=== PATIENT | male | born 1950 | race Caucasian/White ===

== ENCOUNTER → 2016-04-04 | Outpatient (CLI) | payer OTHER ==
[~2016-04-04] MED LIST: ATIVAN0.5 MG PO; ATIVAN1 MG PO; BENICAR5 MG PO; COZAAR25 M1 PO; COZAAR25 MG PO; Coumadin2.5 MG PO; ENDOCET 325 MG-1 TA2 PO; HYDROCODONE BIT1 T11 PO; INDOCIN SR75 MG PO; LOPRESSOR25 MG PO; MEDROL DOSEPAK4 MG PO; MIRALAX POWDER17 G1 PO; PEPCID20 MG PO; PERCOCET 325 MG1 TA3 PO; PERCOCET 325 MG1 TA7 PO; PREDNISONE10 MG PO; SEPTRA DS 800 M1 TAB PO; TOPROL XL25 MG PO; ULTRAM50 MG PO; VICODIN 5/500 505 MG PO; VICODIN 500 MG-1 TAB PO; ZITHROMAX250 MG PO
[2016-04-04 13:22] LABS: BUN 24 mg/dl (7-24); EST GLOM FILT AFRICAN AMERICAN > 60 ml/min
== END | disposition home or self-care (01) ==
LOC: LAB 12:52 → CT 13:00
PROVIDERS: Family Medicine
DX: R10.9 Unspecified abdominal pain (principal); R10.2 Pelvic and perineal pain

== ENCOUNTER → 2016-09-02 | Outpatient (CLI) | payer OTHER ==
[~2016-09-02] MED LIST changes: +ABILIFY2 MG PO; +CLONAZEPAM1 MG PO
[2016-09-02 12:38] LABS: BASO # 0.1 10*3/uL (0.0-0.1); BASO % 0.6 % (0.0-1.0); EOS # 0.2 10*3/uL (0.0-0.4); EOS % 2.4 % (1.0-4.0); HEMATOCRIT 42.3 % (42.0-52.0); HEMOGLOBIN 13.9 g/dl (14.0-18.0); LYMPH # 1.8 10*3/uL (1.3-4.4); LYMPH % 22.5 % (27.0-41.0); MEAN CELL VOLUME 95.5 fl (80.0-94.0); MEAN CORPUSCULAR HGB 31.4 pg (27.0-31.0); MEAN CORPUSCULAR HGB CONC 32.9 g/dl (33.0-37.0); MEAN PLATELET VOLUME 11.2 fl (9.6-12.3); MONO # 0.5 10*3/uL (0.1-1.0); MONO % 6.4 % (3.0-9.0); NEUT # 5.3 10*3/uL (2.3-7.9); PLATELET COUNT AUTOMATED 136 10*3/uL (130-400); RED BLOOD COUNT 4.43 10*6/uL (4.50-5.90); RED CELL DISTRI WIDTH 14.6 % (0-14.5); WHITE BLOOD COUNT 7.8 10*3/uL (4.8-10.8)
[2016-09-02 12:42] LABS: BILIRUBIN NEGATIVE (NEGATIVE); BLOOD TRACE-INTACT (NEGATIVE); CLARITY SL CLOUDY (CLEAR); COLOR YELLOW (YELLOW); GLUCOSE NEGATIVE (NEGATIVE); KETONE NEGATIVE (NEGATIVE); LEUKO ESTERASE NEGATIVE (NEGATIVE); NITRITE NEGATIVE (NEGATIVE); PROTEIN NEGATIVE (NEGATIVE); UROBILINOGEN 0.2 E.U./dl (0.2-1.0)
[2016-09-02 12:56] LABS: MUCOUS TRACE
[2016-09-02 13:04] LABS: BUN 22 mg/dl (7-24); CARBON DIOXIDE 32 mmol/L (21-32); CHLORIDE 109 mmol/L (98-107); EST GLOM FILT AFRICAN AMERICAN > 60 ml/min; GLUCOSE 83 mg/dL (65-99); POTASSIUM 4.9 mmol/L (3.5-5.1); SODIUM 148 mmol/L (136-145)
[2016-09-02 13:07] LABS: INTERNATIONAL NORM RATIO 2.4 (2.0-3.5); PROTHROMBIN TIME 27.3 SECONDS (9.0-12.4)
== END | disposition home or self-care (01) ==
LOC: LAB 10:55
PROVIDERS: Surgery
DX: K40.90 Unilateral inguinal hernia, without obstruction or gangrene, not specified as recurrent (principal); Z79.01 Long term (current) use of anticoagulants

== ENCOUNTER → 2016-09-08 | Day surgery (SDC) | payer OTHER ==
[2016-09-08] VITALS (7 sets, daily range): BP systolic 148–174; BP diastolic 99–108
[~2016-09-08] VITALS: Ht 182.8 cm; Wt 75.7 kg
[~2016-09-08] MED LIST changes: +NORCO 5-325 TA1 EACH PO
[2016-09-08 09:22] LABS: INTERNATIONAL NORM RATIO 1.1 (2.0-3.5); PROTHROMBIN TIME 11.6 SECONDS (9.0-12.4)
== END | disposition home or self-care (01) ==
LOC: SDC 09-02 11:00
PROVIDERS: Surgery
DX: K40.90 Unilateral inguinal hernia, without obstruction or gangrene, not specified as recurrent (principal); I48.91 Unspecified atrial fibrillation; I10 Essential (primary) hypertension; K21.9 Gastro-esophageal reflux disease without esophagitis; F41.9 Anxiety disorder, unspecified; M19.90 Unspecified osteoarthritis, unspecified site; F17.210 Nicotine dependence, cigarettes, uncomplicated; Z96.642 Presence of left artificial hip joint; Z79.01 Long term (current) use of anticoagulants; Z98.890 Other specified postprocedural states; Z82.49 Family history of ischemic heart disease and other diseases of the circulatory system; Z79.899 Other long term (current) drug therapy; Z85.828 Personal history of other malignant neoplasm of skin

== ENCOUNTER 2017-01-18 17:44 | Inpatient (IN) | payer OTHER ==
[~2017-01-18] VITALS: Ht 182.9 cm; Wt 75.4 kg
[2017-01-18 17:44] VITALS: BP 140/98
[2017-01-18 18:17] LABS: BASO % 0.4 % (0.0-1.0); EOS % 0.1 % (1.0-4.0); HEMATOCRIT 49.3 % (42.0-52.0); HEMOGLOBIN 16.6 g/dl (14.0-18.0); LYMPH # 1.1 10*3/uL (1.3-4.4); LYMPH % 14.6 % (27.0-41.0); MEAN CELL VOLUME 93.5 fl (80.0-94.0); MEAN CORPUSCULAR HGB 31.5 pg (27.0-31.0); MEAN CORPUSCULAR HGB CONC 33.7 g/dl (33.0-37.0); MEAN PLATELET VOLUME 10.6 fl (9.6-12.3); MONO # 0.5 10*3/uL (0.1-1.0); MONO % 6.6 % (3.0-9.0); NEUT # 5.9 10*3/uL (2.3-7.9); PLATELET COUNT AUTOMATED 167 10*3/uL (130-400); RED BLOOD COUNT 5.27 10*6/uL (4.50-5.90); RED CELL DISTRI WIDTH 14.1 % (0-14.5); WHITE BLOOD COUNT 7.6 10*3/uL (4.8-10.8)
[2017-01-18 18:33] LABS: ACT PARTIAL THROMBO TIME 40.6 SECONDS (20.8-31.5)
[2017-01-18 18:35] LABS: ALBUMIN 4.1 gm/dl (3.1-4.5); ALKALINE PHOSPHATASE 70 U/L (45-117); BUN 22 mg/dl (7-24); CHLORIDE 102 mmol/L (98-107); CREATININE 1.18 mg/dL (0.70-1.30); POTASSIUM 3.8 mmol/L (3.5-5.1); SGOT/AST 24 IU/L (3-35); SGPT/ALT 19 U/L (12-78); SODIUM 141 mmol/L (136-145); TOTAL PROTEIN 7.4 gm/dL (6.4-8.2); TROPONIN I 0.024 ng/ml (<0.045)
[2017-01-18 18:37] LABS: INTERNATIONAL NORM RATIO 6.9 (2.0-3.5)
[2017-01-18 21:07] LABS: BILIRUBIN 1+ (NEGATIVE); BLOOD 1+ (NEGATIVE); CLARITY CLEAR (CLEAR); COLOR YELLOW (YELLOW); GLUCOSE NEGATIVE (NEGATIVE); KETONE 3+ (NEGATIVE); LEUKO ESTERASE NEGATIVE (NEGATIVE); NITRITE NEGATIVE (NEGATIVE); UROBILINOGEN 0.2 E.U./dl (0.2-1.0)
[2017-01-18 21:20] LABS: BACTERIA TRACE; MUCOUS TRACE
[2017-01-18 21:21] LABS: EPITHELIAL CELLS 0-2
[2017-01-18 22:00] VITALS: BP 150/90
[2017-01-19] VITALS: BP 143/93
[2017-01-19 06:36] LABS: BASO % 0.6 % (0.0-1.0); EOS # 0.1 10*3/uL (0.0-0.4); EOS % 0.8 % (1.0-4.0); HEMATOCRIT 43.7 % (42.0-52.0); HEMOGLOBIN 14.7 g/dl (14.0-18.0); LYMPH # 1.9 10*3/uL (1.3-4.4); LYMPH % 27.2 % (27.0-41.0); MEAN CELL VOLUME 93.4 fl (80.0-94.0); MEAN CORPUSCULAR HGB 31.4 pg (27.0-31.0); MEAN CORPUSCULAR HGB CONC 33.6 g/dl (33.0-37.0); MEAN PLATELET VOLUME 10.8 fl (9.6-12.3); MONO # 0.6 10*3/uL (0.1-1.0); MONO % 8.4 % (3.0-9.0); NEUT # 4.5 10*3/uL (2.3-7.9); NEUT % 62.7 % (47.0-73.0); PLATELET COUNT AUTOMATED 138 10*3/uL (130-400); RED BLOOD COUNT 4.68 10*6/uL (4.50-5.90); RED CELL DISTRI WIDTH 14.3 % (0-14.5); WHITE BLOOD COUNT 7.1 10*3/uL (4.8-10.8)
[2017-01-19 06:44] LABS: BUN 17 mg/dl (7-24); CHLORIDE 110 mmol/L (98-107); CHOLESTEROL 117 mg/dL (<200); CREATININE 0.78 mg/dL (0.70-1.30); HDL CHOLESTEROL 30 mg/dl (40-60); LDL CHOLESTEROL 63 mg/dL (9-159); PHOSPHOROUS 2.4 mg/dL (2.5-4.9); POTASSIUM 3.5 mmol/L (3.5-5.1); SODIUM 143 mmol/L (136-145); TRIGLYCERIDES 118 mg/dl (<150); VLDL CHOLESTEROL 24 mg/dL (6-40)
--- NOTE | 2017-01-19 06:45 | NUR ---
SPOKE WITH DR. IRAHETA AT THIS TIME REGARDING CONSULT. PER DR. IRAHETA THE PT. DOES NOT NEED TO BE NPO, AND HE DOES NOT BELIEVE HE NEEDS TO SEE THE PT. BASED OFF THE INFORMATION PROVIDED.
[2017-01-19 06:50] LABS: THYROID STIM HORMONE (HS) 0.342 uIU/ml (0.358-4.75)
--- NOTE | 2017-01-19 06:55 | NUR ---
SPOKE TO DR. BURGOS IN REGARDS TO DR. IRAHETA CONSULT AND CRITICAL PT/INR. NO NEW ORDERS AT THIS TIME.
[2017-01-19 07:11] LABS: INTERNATIONAL NORM RATIO 6.8 (2.0-3.5)
[2017-01-19 07:51] LABS: VITAMIN D, 25-HYDROXY 26.6 ng/mL (30-100)
[2017-01-19 08:00] VITALS: BP 146/86
--- NOTE | 2017-01-19 09:00 | NUR ---
Team Truck Driver in to talk to patient. Patient states lives at home with . There are few steps in the home. Physician: deb flowers [facility]acy[facility] Home health services: none Patient's level of ADLs: INDEPENDENT Patient has working utilities: all working DME: none Follow-up physician's appointment after d/c: will be made by hospitalist nurse director upon discharge Does patient want to access PORTAL?: no Discharge plan discussed with patient, patient lives at home with , states he is independent in adls and ambulation, patient states he will be going home when able and denies any home needs. DEISI SRIVASTAVA
--- NOTE | 2017-01-19 09:05 | NUR ---
PT C/O ABDOMINAL PAIN AND REQUESTED PRN PAIN MEIDCATION, ADMINSTERED DILAUDID IVP PRN PER ORDERS, WILL MONITOR EFFECTS
--- NOTE | 2017-01-19 10:05 | NUR ---
PRN PAIN MEDICATION EFFECTIVE PT RESTING IN BED, AWAITING TO HAVE CT SCAN COMPLETED, 20 GAUGE PLACED IN RAC, ATTEMPTED X 1 PT TOLERATES WELL
--- NOTE | 2017-01-19 10:45 | NUR ---
CALL PLACED TO PHARMACY R/T POTASSIUM, PHARMACY STATES THAT MEDICATION IS UNAVAILABLE AND THEY ARE WORKING TO GET MEDICATION
[2017-01-19 12:00] VITALS: BP 154/98
--- NOTE | 2017-01-19 14:08 | NUR ---
PT REQUESTS PRN PAIN MEDICATION, ADMINISTERED DILAUDID IVP PRN PER ORDERS, WILL MONITOR EFFECTS
--- NOTE | 2017-01-19 15:08 | NUR ---
PT REPORTS DECREASED PAIN IN THE ABDOMINAL PRN DILAUDID EFFECTIVE AT THIS TIME
[2017-01-19 16:00] VITALS: BP 169/110
--- NOTE | 2017-01-19 18:30 | NUR ---
PT REQUESTED PRN PAIN MEDICATION, R/T INCREASED ABDOMINAL PAIN, ADMINSTERED DILAUDID PRN PER ORDERS
--- NOTE | 2017-01-19 20:15 | NUR ---
REPORT CALLED TO JAKE
--- NOTE | 2017-01-19 20:16 | NUR ---
[facility] TRANSPORTED PATIENT OFF FLOOR.
== END 2017-01-19 20:16 | disposition short-term general hospital (02) | DRG 872 ==
LOC: ED 17:44 → EDHOLD 20:19 → 5E 20:19
PROVIDERS: Emergency Medicine; Internal Medicine; Nurse Practitioner; ADMIT Internal Medicine
DX: A41.9 Sepsis, unspecified organism (principal); F33.9 Major depressive disorder, recurrent, unspecified; I48.0 Paroxysmal atrial fibrillation; G43.909 Migraine, unspecified, not intractable, without status migrainosus; D72.825 Bandemia; E80.6 Other disorders of bilirubin metabolism; K52.9 Noninfective gastroenteritis and colitis, unspecified; F17.210 Nicotine dependence, cigarettes, uncomplicated; F41.9 Anxiety disorder, unspecified; I10 Essential (primary) hypertension; Z96.642 Presence of left artificial hip joint; R79.1 Abnormal coagulation profile; G47.00 Insomnia, unspecified; M15.9 Polyosteoarthritis, unspecified; M54.16 Radiculopathy, lumbar region; G89.29 Other chronic pain; R94.31 Abnormal electrocardiogram [ECG] [EKG]; R31.9 Hematuria, unspecified; Z85.828 Personal history of other malignant neoplasm of skin; Z82.49 Family history of ischemic heart disease and other diseases of the circulatory system; Z83.79 Family history of other diseases of the digestive system; Z79.01 Long term (current) use of anticoagulants; Z79.891 Long term (current) use of opiate analgesic; Z79.899 Other long term (current) drug therapy

== ENCOUNTER 2017-04-04 13:50 | Emergency (ER) | payer OTHER ==
[~2017-04-04] VITALS: Ht 182.8 cm; Wt 70.3 kg
[2017-04-04] MEDS ORDERED: NORVASC5 MG PO (13:59)
[2017-04-04 14:28] LABS: BASO # 0.1 10*3/uL (0.0-0.1); BASO % 0.7 % (0.0-1.0); EOS # 0.1 10*3/uL (0.0-0.4); EOS % 1.1 % (1.0-4.0); HEMATOCRIT 45.8 % (42.0-52.0); HEMOGLOBIN 15.3 g/dl (14.0-18.0); LYMPH # 2.1 10*3/uL (1.3-4.4); LYMPH % 28.6 % (27.0-41.0); MEAN CELL VOLUME 95.2 fl (80.0-94.0); MEAN CORPUSCULAR HGB 31.8 pg (27.0-31.0); MEAN CORPUSCULAR HGB CONC 33.4 g/dl (33.0-37.0); MEAN PLATELET VOLUME 10.7 fl (9.6-12.3); MONO # 0.6 10*3/uL (0.1-1.0); MONO % 7.5 % (3.0-9.0); NEUT # 4.6 10*3/uL (2.3-7.9); NEUT % 61.8 % (47.0-73.0); PLATELET COUNT AUTOMATED 163 10*3/uL (130-400); RED BLOOD COUNT 4.81 10*6/uL (4.50-5.90); RED CELL DISTRI WIDTH 14.4 % (0-14.5); WHITE BLOOD COUNT 7.4 10*3/uL (4.8-10.8)
[2017-04-04 14:36] LABS: ACT PARTIAL THROMBO TIME 31.9 SECONDS (20.8-31.5); INTERNATIONAL NORM RATIO 2.7 (2.0-3.5)
[2017-04-04 14:43] LABS: ALBUMIN 3.5 gm/dl (3.1-4.5); ALKALINE PHOSPHATASE 73 U/L (45-117); BUN 19 mg/dl (7-24); CHLORIDE 108 mmol/L (98-107); CREATININE 1.09 mg/dL (0.70-1.30); LIPASE 134 U/L (73-393); POTASSIUM 3.3 mmol/L (3.5-5.1); SGOT/AST 7 IU/L (3-35); SGPT/ALT 11 U/L (12-78); SODIUM 146 mmol/L (136-145); TOTAL PROTEIN 7.3 gm/dL (6.4-8.2)
[2017-04-04 15:34] LABS: BILIRUBIN 1+ (NEGATIVE); BLOOD 3+ (NEGATIVE); CLARITY CLOUDY (CLEAR); COLOR YELLOW (YELLOW); GLUCOSE NEGATIVE (NEGATIVE); KETONE 1+ (NEGATIVE); LEUKO ESTERASE NEGATIVE (NEGATIVE); NITRITE POSITIVE (NEGATIVE); SPECIFIC GRAVITY 1.025 (1.005-1.030)
[2017-04-04 15:40] LABS: BACTERIA 2+; EPITHELIAL CELLS 0-2; MUCOUS 2+; RBC TNTC rbc/hpf (0-2); WBC 0-2 wbc/hpf (0-5)
[2017-04-04] MEDS ORDERED: AMINOPHYLLIN200 MG PO (15:54)
== END 2017-04-04 16:00 | disposition home or self-care (01) ==
LOC: ED 13:50
PROVIDERS: Nurse Practitioner Family
DX: N39.0 Urinary tract infection, site not specified (principal); I48.91 Unspecified atrial fibrillation; F41.9 Anxiety disorder, unspecified; F32.9 Major depressive disorder, single episode, unspecified; I10 Essential (primary) hypertension; G47.00 Insomnia, unspecified; G43.909 Migraine, unspecified, not intractable, without status migrainosus; F17.210 Nicotine dependence, cigarettes, uncomplicated; Z90.89 Acquired absence of other organs; Z79.899 Other long term (current) drug therapy

== ENCOUNTER 2017-05-15 23:49 | Inpatient (IN) | payer OTHER ==
[~2017-05-15] VITALS: Ht 182.8 cm; Wt 82.8 kg
--- NOTE | ~2017-05-15 | PR ---
[place], [place] PROGRESS NOTE NAME: CRISTINA URENA [facility] #: [id number] UNIT #: [id number] ROOM: 405 DOCTOR: AZAM IRAHETA MD BIRTHDATE: [birth year] DOS: 05/17/2017 SUBJECTIVE: The patient was seen in the Cardiology Department just prior to his stress test this morning. He is a 66-year-old man who does have a history of permanent atrial fibrillation and presented with newly documented heart failure on this admission. He did have dyspnea and some chest discomfort. His symptoms are improving. He has diuresed somewhat since admission. He did have an echocardiogram done on 05/16/2017. It showed normal left ventricular size, wall motion and systolic function with an ejection fraction of 60%. Diastole could not be measured because of his atrial fibrillation. He was also noted to have valvular heart disease. Aortic leaflets are sclerotic, but open well. There was mild aortic insufficiency, but no aortic stenosis. The mitral valve did show significant annular calcification with leaflet thickening and decreased excursion. He had mild mitral insufficiency as well as mild mitral stenosis. Estimated valve area was 2 cm2 with a mean gradient of 5 mmHg. Right ventricular systolic pressures were normal. PHYSICAL EXAMINATION: VITAL SIGNS: Today his pulse is 100 and irregularly irregular, blood pressure is 120/79. He is afebrile. NECK: Supple. He has no jugular distention. Carotids are full. LUNGS: Respirations are unlabored. He has decreased breath sounds at the bases, but no wheezes or rales. He has no presacral edema. HEART: Has an irregularly irregular rhythm. He does have a grade 2/6 systolic murmur along the left sternal border. There are no diastolic murmurs. ABDOMEN: Benign. EXTREMITIES: Showed no edema. IMPRESSION: 1. Hospitalization for acute on chronic heart failure with preserved left ventricular systolic function. 2. Permanent atrial fibrillation. 3. Valvular heart disease with aortic sclerosis, mild aortic insufficiency and mild mitral stenosis. 4. History of essential hypertension. PLAN: We will proceed with a pharmacologic stress test in order to assist our evaluation of his heart failure. Presumably it is due to valvular heart disease and atrial fibrillation in the setting of a normal left ventricular systolic function. For now we will continue diuretics and rate controlling medications. Further recommendations will depend upon the results of the stress test. I thank the hospitalist physicians for asking our advice regarding his care. [place], [place] PROGRESS NOTE NAME: CRISTINA URENA UNIT #: [id number] ROOM: 405 DOCTOR: AZAM IRAHETA MD BIRTHDATE: [birth year] AZAM IRAHETA MD CM:PNTRANS [id number] AZAM IRAHETA MD 05/17/17 1544 interface
[~2017-05-15 23:49] MED LIST changes: +AMINOPHYLLIN200 MG PO; +NORVASC5 MG PO
[2017-05-16] VITALS (8 sets, daily range): BP systolic 105–127; BP diastolic 69–92
[2017-05-16 00:12] LABS: BASO % 0.7 % (0.0-1.0); EOS # 0.1 10*3/uL (0.0-0.4); HEMATOCRIT 40.7 % (42.0-52.0); HEMOGLOBIN 12.9 g/dl (14.0-18.0); LYMPH # 1.6 10*3/uL (1.3-4.4); LYMPH % 27.3 % (27.0-41.0); MEAN CELL VOLUME 98.8 fl (80.0-94.0); MEAN CORPUSCULAR HGB 31.3 pg (27.0-31.0); MEAN CORPUSCULAR HGB CONC 31.7 g/dl (33.0-37.0); MONO # 0.7 10*3/uL (0.1-1.0); MONO % 11.8 % (3.0-9.0); NEUT # 3.5 10*3/uL (2.3-7.9); PLATELET COUNT AUTOMATED 207 10*3/uL (130-400); RED BLOOD COUNT 4.12 10*6/uL (4.50-5.90); RED CELL DISTRI WIDTH 15.4 % (0-14.5); WHITE BLOOD COUNT 5.9 10*3/uL (4.8-10.8)
[2017-05-16 00:24] LABS: INTERNATIONAL NORM RATIO 2.8 (2.0-3.5)
[2017-05-16 00:29] LABS: ALBUMIN 3.4 gm/dl (3.1-4.5); ALKALINE PHOSPHATASE 72 U/L (45-117); BUN 17 mg/dl (7-24); CHLORIDE 106 mmol/L (98-107); CREATININE 1.01 mg/dL (0.70-1.30); POTASSIUM 3.5 mmol/L (3.5-5.1); SGOT/AST 14 IU/L (3-35); SGPT/ALT 17 U/L (12-78); SODIUM 143 mmol/L (136-145); TOTAL PROTEIN 7.2 gm/dL (6.4-8.2)
[2017-05-16 00:31] LABS: TROPONIN I < 0.015 ng/ml (<0.045)
[2017-05-16] MEDS ORDERED: DEPAKOTE500 MG PO (02:23)
[2017-05-16 06:20] LABS: BASO % 0.5 % (0.0-1.0); EOS # 0.1 10*3/uL (0.0-0.4); EOS % 2.3 % (1.0-4.0); HEMATOCRIT 35.5 % (42.0-52.0); HEMOGLOBIN 11.6 g/dl (14.0-18.0); LYMPH # 1.2 10*3/uL (1.3-4.4); LYMPH % 28.4 % (27.0-41.0); MEAN CELL VOLUME 98.6 fl (80.0-94.0); MEAN CORPUSCULAR HGB 32.2 pg (27.0-31.0); MEAN CORPUSCULAR HGB CONC 32.7 g/dl (33.0-37.0); MONO # 0.5 10*3/uL (0.1-1.0); MONO % 12.4 % (3.0-9.0); NEUT # 2.4 10*3/uL (2.3-7.9); NEUT % 56.4 % (47.0-73.0); PLATELET COUNT AUTOMATED 169 10*3/uL (130-400); RED CELL DISTRI WIDTH 15.1 % (0-14.5); WHITE BLOOD COUNT 4.3 10*3/uL (4.8-10.8)
[2017-05-16 06:33] LABS: ALBUMIN 2.9 gm/dl (3.1-4.5); BUN 16 mg/dl (7-24); CHLORIDE 109 mmol/L (98-107); CHOLESTEROL 119 mg/dL (<200); CREATININE 0.77 mg/dL (0.70-1.30); PHOSPHOROUS 3.3 mg/dL (2.5-4.9); POTASSIUM 3.6 mmol/L (3.5-5.1); SGOT/AST 12 IU/L (3-35); SGPT/ALT 15 U/L (12-78); SODIUM 145 mmol/L (136-145); TOTAL PROTEIN 6.2 gm/dL (6.4-8.2); TRIGLYCERIDES 79 mg/dl (<150); VLDL CHOLESTEROL 16 mg/dL (6-40)
[2017-05-16 06:40] LABS: ALKALINE PHOSPHATASE 62 U/L (45-117); FREE T4 1.23 ng/dl (0.76-1.46); HDL CHOLESTEROL 34 mg/dl (40-60); LDL CHOLESTEROL 69 mg/dL (9-159); THYROID STIM HORMONE (HS) 0.635 uIU/ml (0.358-4.75)
[2017-05-16 08:13] LABS: VITAMIN D, 25-HYDROXY 15.6 ng/mL (30-100)
[2017-05-16 08:33] LABS: BILIRUBIN NEGATIVE (NEGATIVE); BLOOD NEGATIVE (NEGATIVE); CLARITY SL CLOUDY (CLEAR); COLOR YELLOW (YELLOW); GLUCOSE NEGATIVE (NEGATIVE); KETONE NEGATIVE (NEGATIVE); LEUKO ESTERASE NEGATIVE (NEGATIVE); NITRITE NEGATIVE (NEGATIVE); UROBILINOGEN 0.2 E.U./dl (0.2-1.0)
[2017-05-16 09:48] LABS: BACTERIA 2+; EPITHELIAL CELLS 0-2
[2017-05-17] VITALS: BP 120/79
[2017-05-17 06:18] LABS: BASO % 0.8 % (0.0-1.0); EOS # 0.2 10*3/uL (0.0-0.4); HEMATOCRIT 36.9 % (42.0-52.0); LYMPH # 1.5 10*3/uL (1.3-4.4); LYMPH % 29.8 % (27.0-41.0); MEAN CELL VOLUME 98.7 fl (80.0-94.0); MEAN CORPUSCULAR HGB 32.1 pg (27.0-31.0); MEAN CORPUSCULAR HGB CONC 32.5 g/dl (33.0-37.0); MEAN PLATELET VOLUME 10.5 fl (9.6-12.3); MONO # 0.6 10*3/uL (0.1-1.0); MONO % 11.5 % (3.0-9.0); NEUT # 2.8 10*3/uL (2.3-7.9); NEUT % 54.7 % (47.0-73.0); PLATELET COUNT AUTOMATED 188 10*3/uL (130-400); RED BLOOD COUNT 3.74 10*6/uL (4.50-5.90); RED CELL DISTRI WIDTH 15.4 % (0-14.5); WHITE BLOOD COUNT 5.1 10*3/uL (4.8-10.8)
[2017-05-17 06:47] LABS: INTERNATIONAL NORM RATIO 2.6 (2.0-3.5)
[2017-05-17 06:52] LABS: BUN 24 mg/dl (7-24); CHLORIDE 109 mmol/L (98-107); CREATININE 0.93 mg/dL (0.70-1.30); POTASSIUM 3.8 mmol/L (3.5-5.1); SODIUM 145 mmol/L (136-145)
[2017-05-17 12:00] VITALS: BP 109/83
[2017-05-17 16:00] VITALS: BP 108/82
[2017-05-17 20:05] VITALS: BP 107/70
[2017-05-18] VITALS: BP 122/69
[2017-05-18 06:23] LABS: BASO % 0.6 % (0.0-1.0); EOS # 0.2 10*3/uL (0.0-0.4); EOS % 3.4 % (1.0-4.0); HEMATOCRIT 39.2 % (42.0-52.0); HEMOGLOBIN 12.8 g/dl (14.0-18.0); LYMPH # 1.8 10*3/uL (1.3-4.4); LYMPH % 28.4 % (27.0-41.0); MEAN CELL VOLUME 99.5 fl (80.0-94.0); MEAN CORPUSCULAR HGB 32.5 pg (27.0-31.0); MEAN CORPUSCULAR HGB CONC 32.7 g/dl (33.0-37.0); MEAN PLATELET VOLUME 10.4 fl (9.6-12.3); MONO # 0.6 10*3/uL (0.1-1.0); MONO % 8.9 % (3.0-9.0); NEUT # 3.6 10*3/uL (2.3-7.9); NEUT % 58.5 % (47.0-73.0); PLATELET COUNT AUTOMATED 200 10*3/uL (130-400); RED BLOOD COUNT 3.94 10*6/uL (4.50-5.90); RED CELL DISTRI WIDTH 15.2 % (0-14.5); WHITE BLOOD COUNT 6.2 10*3/uL (4.8-10.8)
[2017-05-18 06:53] LABS: BUN 33 mg/dl (7-24); CHLORIDE 107 mmol/L (98-107); POTASSIUM 3.9 mmol/L (3.5-5.1); SODIUM 145 mmol/L (136-145)
[2017-05-18 06:54] LABS: CREATININE 0.95 mg/dL (0.70-1.30)
[2017-05-18 07:09] LABS: INTERNATIONAL NORM RATIO 2.6 (2.0-3.5)
[2017-05-18 08:00] VITALS: BP 126/72
[2017-05-18 12:00] VITALS: BP 107/64
[2017-05-18 16:00] VITALS: BP 110/77
[2017-05-18 20:00] VITALS: BP 99/67
[2017-05-19] VITALS: BP 116/75
[2017-05-19 07:03] LABS: BASO % 0.7 % (0.0-1.0); EOS # 0.2 10*3/uL (0.0-0.4); HEMATOCRIT 39.3 % (42.0-52.0); HEMOGLOBIN 12.6 g/dl (14.0-18.0); LYMPH # 1.7 10*3/uL (1.3-4.4); LYMPH % 27.9 % (27.0-41.0); MEAN CORPUSCULAR HGB 31.4 pg (27.0-31.0); MEAN CORPUSCULAR HGB CONC 32.1 g/dl (33.0-37.0); MEAN PLATELET VOLUME 10.3 fl (9.6-12.3); MONO # 0.5 10*3/uL (0.1-1.0); NEUT # 3.6 10*3/uL (2.3-7.9); NEUT % 59.2 % (47.0-73.0); PLATELET COUNT AUTOMATED 187 10*3/uL (130-400); RED BLOOD COUNT 4.01 10*6/uL (4.50-5.90)
[2017-05-19 07:19] LABS: BUN 38 mg/dl (7-24); CHLORIDE 107 mmol/L (98-107); CREATININE 0.91 mg/dL (0.70-1.30); POTASSIUM 3.7 mmol/L (3.5-5.1); SODIUM 144 mmol/L (136-145)
[2017-05-19 07:36] LABS: INTERNATIONAL NORM RATIO 3.1 (2.0-3.5)
[2017-05-19 08:00] VITALS: BP 109/78
[2017-05-19] MEDS ORDERED: VITAMIN D-32000 UNIT PO (10:17)
[2017-05-19] MEDS ORDERED: FUROSEMIDE40 MG PO (10:19)
== END 2017-05-19 11:10 | disposition home or self-care (01) | DRG 291 ==
LOC: ED 23:49 → 4E 05-16 01:39 → EDHOLD 05-16 01:39 → 4E 05-16 01:46
PROVIDERS: Emergency Medicine Emergency Medical Services; Internal Medicine; Internal Medicine Nephrology
PROC: 4A02XM4 Measurement of Cardiac Total Activity, External Approach (ICD-10-PCS; principal; 2017-05-17)
PROC: 3E073KZ Introduction of Other Diagnostic Substance into Coronary Artery, Percutaneous Approach (ICD-10-PCS; 2017-05-17)
DX: I50.31 Acute diastolic (congestive) heart failure (principal); J18.9 Pneumonia, unspecified organism; E44.0 Moderate protein-calorie malnutrition; E87.8 Other disorders of electrolyte and fluid balance, not elsewhere classified; I48.2 Chronic atrial fibrillation; J44.1 Chronic obstructive pulmonary disease with (acute) exacerbation; E83.41 Hypermagnesemia; F17.210 Nicotine dependence, cigarettes, uncomplicated; D53.9 Nutritional anemia, unspecified; K21.9 Gastro-esophageal reflux disease without esophagitis; I11.0 Hypertensive heart disease with heart failure; F32.9 Major depressive disorder, single episode, unspecified; G43.909 Migraine, unspecified, not intractable, without status migrainosus; G89.29 Other chronic pain; R07.89 Other chest pain; M54.5 Low back pain; Z96.642 Presence of left artificial hip joint; M54.16 Radiculopathy, lumbar region; R73.9 Hyperglycemia, unspecified; F41.1 Generalized anxiety disorder; M15.9 Polyosteoarthritis, unspecified; I73.9 Peripheral vascular disease, unspecified; I08.0 Rheumatic disorders of both mitral and aortic valves; Z68.24 Body mass index [BMI] 24.0-24.9, adult; Z87.440 Personal history of urinary (tract) infections; Z85.828 Personal history of other malignant neoplasm of skin; Z82.49 Family history of ischemic heart disease and other diseases of the circulatory system; Z84.89 Family history of other specified conditions; Z79.899 Other long term (current) drug therapy; M94.0 Chondrocostal junction syndrome [Tietze]

== ENCOUNTER 2017-05-30 15:59 | Inpatient (IN) | payer OTHER ==
[~2017-05-30] VITALS: Ht 182.8 cm; Wt 73.2 kg
--- NOTE | ~2017-05-30 | CON ---
[place], [place] REPORT OF CONSULTATION NAME: CRISTINA URENA UNIT #: [id number] ROOM: 404 DOCTOR: SUKUMAR HUERTA MD BIRTHDATE: [birth year] DOS: 06/03/2017 CHIEF COMPLAINT: "I just am so depressed." HISTORY OF PRESENT ILLNESS: This is a 66-year-old white male who was admitted for increased chest pain that is radiating in a band like fashion across his right chest. The patient had previously been admitted for some breathing issues with COPD. The patient also has a history of depression, made worse by his 's recent passing. He endorses significant chronic pain as well. 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 He does remember being on Cymbalta briefly, but does not remember how long he had been on it or how higher dose he was on. PAST MEDICAL HISTORY: Remarkable for A-Fib, bilateral lower extremity edema, congestive heart failure, chronic radicular lower back pain, depression, dissection of a mesenteric artery, hypertension, osteoarthritis, QT prolongation renal cyst and nicotine abuse. MENTAL STATUS: He is alert and oriented to person, place and time. Mood does seem to be overwhelmingly depressed. Affect is flat and blunted with a constricted range. He endorses multiple neurovegetative symptoms. There is no hypomania or jase. There are no overt auditory or visual hallucinations. No delusions, no paranoia. Short, intermediate, and long-term memory are intact. DIAGNOSIS: Major depression, recurrent, severe. PLAN: I have discontinued his Depakote and his Restoril in lieu of Cymbalta 30 mg at bedtime. This dose needs to be gradually titrated upwards to at least 60 if not 90 or 120 mg. Given the severity of his depression I do think he would benefit from a stay on the Behavioral Health Unit. Should he agree once he is medically stable. SUKUMAR HUERTA MD CM:CONSTR:REPORT OF CONSULTATION 06/04/17 0954 interface
[~2017-05-30 15:59] MED LIST changes: +DEPAKOTE500 MG PO; +FUROSEMIDE40 MG PO; +VITAMIN D-32000 UNIT PO
[2017-05-30 16:11] VITALS: BP 115/71
[2017-05-30 16:43] LABS: BASO % 0.5 % (0.0-1.0); EOS % 0.4 % (1.0-4.0); HEMATOCRIT 45.1 % (42.0-52.0); LYMPH # 1.2 10*3/uL (1.3-4.4); MEAN CORPUSCULAR HGB 31.9 pg (27.0-31.0); MEAN CORPUSCULAR HGB CONC 33.3 g/dl (33.0-37.0); MEAN PLATELET VOLUME 10.4 fl (9.6-12.3); MONO # 0.6 10*3/uL (0.1-1.0); MONO % 8.1 % (3.0-9.0); NEUT % 75.7 % (47.0-73.0); PLATELET COUNT AUTOMATED 227 10*3/uL (130-400); RED CELL DISTRI WIDTH 14.6 % (0-14.5); WHITE BLOOD COUNT 7.9 10*3/uL (4.8-10.8)
[2017-05-30 16:54] LABS: ACT PARTIAL THROMBO TIME 36.5 SECONDS (20.8-31.5)
[2017-05-30 16:59] LABS: ALBUMIN 3.5 gm/dl (3.1-4.5); ALKALINE PHOSPHATASE 82 U/L (45-117); BUN 20 mg/dl (7-24); CHLORIDE 108 mmol/L (98-107); POTASSIUM 4.1 mmol/L (3.5-5.1); SGOT/AST 13 IU/L (3-35); SGPT/ALT 12 U/L (12-78); SODIUM 143 mmol/L (136-145); TOTAL PROTEIN 7.4 gm/dL (6.4-8.2)
[2017-05-30 17:01] LABS: TROPONIN I < 0.015 ng/ml (<0.045)
[2017-05-30 18:03] VITALS: BP 110/73
[2017-05-30 18:55] VITALS: BP 113/80
[2017-05-30 20:00] VITALS: BP 112/79
[2017-05-31] VITALS: BP 121/78
[2017-05-31 06:50] LABS: BASO # 0.1 10*3/uL (0.0-0.1); BASO % 0.7 % (0.0-1.0); EOS # 0.1 10*3/uL (0.0-0.4); EOS % 1.2 % (1.0-4.0); HEMATOCRIT 41.5 % (42.0-52.0); HEMOGLOBIN 13.7 g/dl (14.0-18.0); LYMPH % 30.2 % (27.0-41.0); MEAN PLATELET VOLUME 10.9 fl (9.6-12.3); MONO # 0.7 10*3/uL (0.1-1.0); MONO % 10.3 % (3.0-9.0); NEUT # 3.8 10*3/uL (2.3-7.9); NEUT % 57.3 % (47.0-73.0); PLATELET COUNT AUTOMATED 190 10*3/uL (130-400); RED BLOOD COUNT 4.28 10*6/uL (4.50-5.90); RED CELL DISTRI WIDTH 14.6 % (0-14.5); WHITE BLOOD COUNT 6.7 10*3/uL (4.8-10.8)
[2017-05-31 06:55] LABS: ACT PARTIAL THROMBO TIME 36.5 SECONDS (20.8-31.5); INTERNATIONAL NORM RATIO 3.8 (2.0-3.5)
[2017-05-31 07:08] LABS: BUN 24 mg/dl (7-24); CHLORIDE 110 mmol/L (98-107); CHOLESTEROL 150 mg/dL (<200); CREATININE 0.89 mg/dL (0.70-1.30); HDL CHOLESTEROL 33 mg/dl (40-60); LDL CHOLESTEROL 97 mg/dL (9-159); PHOSPHOROUS 3.8 mg/dL (2.5-4.9); POTASSIUM 4.1 mmol/L (3.5-5.1); SGOT/AST 9 IU/L (3-35); SGPT/ALT 8 U/L (12-78); SODIUM 145 mmol/L (136-145); TOTAL PROTEIN 6.3 gm/dL (6.4-8.2); TRIGLYCERIDES 102 mg/dl (<150); VLDL CHOLESTEROL 20 mg/dL (6-40)
[2017-05-31 07:14] LABS: ALKALINE PHOSPHATASE 68 U/L (45-117); FREE T4 0.94 ng/dl (0.76-1.46); THYROID STIM HORMONE (HS) 0.863 uIU/ml (0.358-4.75)
[2017-05-31 08:00] VITALS: BP 109/78
[2017-05-31 08:17] LABS: VITAMIN D, 25-HYDROXY 21.9 ng/mL (30-100)
[2017-05-31 12:00] VITALS: BP 106/78
[2017-05-31 16:00] VITALS: BP 128/89
[2017-05-31 20:00] VITALS: BP 110/80
[2017-06-01] VITALS: BP 140/89
[2017-06-01 06:18] LABS: BASO # 0.1 10*3/uL (0.0-0.1); EOS # 0.1 10*3/uL (0.0-0.4); EOS % 1.5 % (1.0-4.0); HEMATOCRIT 41.8 % (42.0-52.0); HEMOGLOBIN 13.8 g/dl (14.0-18.0); LYMPH # 1.8 10*3/uL (1.3-4.4); LYMPH % 30.1 % (27.0-41.0); MEAN PLATELET VOLUME 10.8 fl (9.6-12.3); MONO # 0.6 10*3/uL (0.1-1.0); MONO % 10.5 % (3.0-9.0); NEUT # 3.4 10*3/uL (2.3-7.9); NEUT % 56.7 % (47.0-73.0); PLATELET COUNT AUTOMATED 165 10*3/uL (130-400); RED BLOOD COUNT 4.31 10*6/uL (4.50-5.90); RED CELL DISTRI WIDTH 14.3 % (0-14.5)
[2017-06-01 06:44] LABS: INTERNATIONAL NORM RATIO 3.5 (2.0-3.5)
[2017-06-01 06:46] LABS: ALKALINE PHOSPHATASE 70 U/L (45-117); BUN 27 mg/dl (7-24); CHLORIDE 108 mmol/L (98-107); CREATININE 0.96 mg/dL (0.70-1.30); POTASSIUM 3.8 mmol/L (3.5-5.1); SGOT/AST 11 IU/L (3-35); SGPT/ALT 11 U/L (12-78); SODIUM 144 mmol/L (136-145); TOTAL PROTEIN 6.4 gm/dL (6.4-8.2)
[2017-06-01 08:00] VITALS: BP 116/74
[2017-06-01 12:00] VITALS: BP 108/70
[2017-06-01 16:00] VITALS: BP 88/60
[2017-06-01 16:45] VITALS: BP 90/72
[2017-06-01 20:00] VITALS: BP 106/72; BP 170/100
[2017-06-02] VITALS: BP 114/78
[2017-06-02 07:11] LABS: INTERNATIONAL NORM RATIO 2.6 (2.0-3.5)
[2017-06-02 08:00] VITALS: BP 120/82
[2017-06-02 12:00] VITALS: BP 117/66
[2017-06-02 16:00] VITALS: BP 103/64
[2017-06-02 20:00] VITALS: BP 147/84
[2017-06-03] VITALS: BP 104/67
[2017-06-03 07:34] LABS: BUN 32 mg/dl (7-24); CHLORIDE 107 mmol/L (98-107); POTASSIUM 3.4 mmol/L (3.5-5.1); SODIUM 144 mmol/L (136-145)
[2017-06-03 07:35] LABS: CREATININE 0.83 mg/dL (0.70-1.30)
[2017-06-03 08:00] VITALS: BP 105/81
[2017-06-03 12:00] VITALS: BP 93/66
[2017-06-03 16:00] VITALS: BP 94/59
[2017-06-03 20:00] VITALS: BP 102/76
[2017-06-04] VITALS: BP 97/73
[2017-06-04 08:00] VITALS: BP 125/87
[2017-06-04 10:10] LABS: INTERNATIONAL NORM RATIO 1.9 (2.0-3.5)
[2017-06-04 10:20] LABS: ALKALINE PHOSPHATASE 61 U/L (45-117); BUN 32 mg/dl (7-24); CHLORIDE 107 mmol/L (98-107); CREATININE 0.93 mg/dL (0.70-1.30); POTASSIUM 3.8 mmol/L (3.5-5.1); SGOT/AST 9 IU/L (3-35); SGPT/ALT 9 U/L (12-78); SODIUM 145 mmol/L (136-145); TOTAL PROTEIN 6.3 gm/dL (6.4-8.2)
[2017-06-04 12:00] VITALS: BP 120/76
[2017-06-04 16:00] VITALS: BP 107/74
[2017-06-04 20:00] VITALS: BP 102/72
[2017-06-05] VITALS: BP 116/81
[2017-06-05 06:40] LABS: INTERNATIONAL NORM RATIO 2.1 (2.0-3.5)
[2017-06-05 08:00] VITALS: BP 114/78
[2017-06-05 12:00] VITALS: BP 121/64; BP 94/64
[2017-06-05] MEDS ORDERED: DULOXETINE HCL30 MG PO (15:17)
[2017-06-05] MEDS ORDERED: DILTIAZEM HYDR180 M2 PO (15:17)
[2017-06-05 16:00] VITALS: BP 107/65
[2017-06-05 20:00] VITALS: BP 105/73
[2017-06-06] VITALS: BP 111/79
[2017-06-06 08:00] VITALS: BP 121/81
[2017-06-06 12:00] VITALS: BP 105/77
[2017-06-06] MEDS ORDERED: ATARAX,VISTARIL50 MG PO (15:16)
[2017-06-06 16:00] VITALS: BP 100/76
== END 2017-06-06 17:00 | disposition home health service (06) | DRG 871 ==
LOC: ED 15:59 → EDHOLD 17:21 → 4E 17:21
PROVIDERS: Emergency Medicine; Family Medicine; Internal Medicine; Internal Medicine Hospice and Palliative Medicine
DX: A41.9 Sepsis, unspecified organism (principal); J18.9 Pneumonia, unspecified organism; E44.0 Moderate protein-calorie malnutrition; I11.0 Hypertensive heart disease with heart failure; F33.2 Major depressive disorder, recurrent severe without psychotic features; E87.8 Other disorders of electrolyte and fluid balance, not elsewhere classified; I50.32 Chronic diastolic (congestive) heart failure; E83.41 Hypermagnesemia; I48.91 Unspecified atrial fibrillation; F41.9 Anxiety disorder, unspecified; M54.16 Radiculopathy, lumbar region; N28.1 Cyst of kidney, acquired; R07.89 Other chest pain; R73.9 Hyperglycemia, unspecified; M19.90 Unspecified osteoarthritis, unspecified site; F41.1 Generalized anxiety disorder; G89.29 Other chronic pain; F51.01 Primary insomnia; R94.31 Abnormal electrocardiogram [ECG] [EKG]; G43.909 Migraine, unspecified, not intractable, without status migrainosus; Z96.642 Presence of left artificial hip joint; F17.210 Nicotine dependence, cigarettes, uncomplicated; Z79.01 Long term (current) use of anticoagulants; Z79.899 Other long term (current) drug therapy; Z85.828 Personal history of other malignant neoplasm of skin; Z82.49 Family history of ischemic heart disease and other diseases of the circulatory system; Z83.79 Family history of other diseases of the digestive system; Z68.21 Body mass index [BMI] 21.0-21.9, adult

== ENCOUNTER 2017-06-20 18:48 | Inpatient (IN) | payer OTHER ==
[~2017-06-20] VITALS: Ht 182.8 cm; Wt 60.5 kg
[~2017-06-20 18:48] MED LIST changes: +ATARAX,VISTARIL50 MG PO; +DILTIAZEM HYDR180 M2 PO; +DULOXETINE HCL30 MG PO
[2017-06-20 18:56] VITALS: BP 127/87
[2017-06-20 19:24] VITALS: BP 139/89
[2017-06-20 20:17] LABS: BASO # 0.1 10*3/uL (0.0-0.1); BASO % 0.7 % (0.0-1.0); EOS % 0.2 % (1.0-4.0); HEMATOCRIT 46.4 % (42.0-52.0); HEMOGLOBIN 15.6 g/dl (14.0-18.0); LYMPH # 1.7 10*3/uL (1.3-4.4); LYMPH % 17.6 % (27.0-41.0); MEAN CELL VOLUME 94.9 fl (80.0-94.0); MEAN CORPUSCULAR HGB 31.9 pg (27.0-31.0); MEAN CORPUSCULAR HGB CONC 33.6 g/dl (33.0-37.0); MEAN PLATELET VOLUME 10.8 fl (9.6-12.3); MONO # 0.7 10*3/uL (0.1-1.0); NEUT # 7.2 10*3/uL (2.3-7.9); NEUT % 74.3 % (47.0-73.0); PLATELET COUNT AUTOMATED 181 10*3/uL (130-400); RED BLOOD COUNT 4.89 10*6/uL (4.50-5.90); RED CELL DISTRI WIDTH 14.2 % (0-14.5); WHITE BLOOD COUNT 9.7 10*3/uL (4.8-10.8)
[2017-06-20 20:19] LABS: BILIRUBIN 1+ (NEGATIVE); BLOOD TRACE-INTACT (NEGATIVE); CLARITY CLEAR (CLEAR); COLOR YELLOW (YELLOW); GLUCOSE NEGATIVE (NEGATIVE); KETONE 2+ (NEGATIVE); LEUKO ESTERASE TRACE (NEGATIVE); NITRITE NEGATIVE (NEGATIVE); SPECIFIC GRAVITY 1.015 (1.005-1.030)
[2017-06-20 20:29] LABS: BACTERIA 2+; EPITHELIAL CELLS 0-2; MUCOUS TRACE
[2017-06-20 20:30] VITALS: BP 132/92
[2017-06-20 20:36] LABS: ALBUMIN 3.8 gm/dl (3.1-4.5); ALKALINE PHOSPHATASE 70 U/L (45-117); BUN 16 mg/dl (7-24); CHLORIDE 103 mmol/L (98-107); CREATININE 1.15 mg/dL (0.70-1.30); POTASSIUM 3.5 mmol/L (3.5-5.1); SGOT/AST 12 IU/L (3-35); SGPT/ALT 22 U/L (12-78); SODIUM 140 mmol/L (136-145); TOTAL PROTEIN 7.2 gm/dL (6.4-8.2)
[2017-06-20 20:38] LABS: TROPONIN I < 0.015 ng/ml (<0.045)
[2017-06-20] MEDS ORDERED: ASPIRIN ADULT L81 M1 PO (21:59)
[2017-06-20 22:00] VITALS: BP 162/99
[2017-06-20 22:02] VITALS: BP 162/99
[2017-06-21] VITALS: BP 114/82
[2017-06-21 00:37] LABS: ACT PARTIAL THROMBO TIME 45.8 SECONDS (20.8-31.5)
[2017-06-21 00:39] LABS: INTERNATIONAL NORM RATIO 7.4 (2.0-3.5)
[2017-06-21 04:00] VITALS: BP 104/77
[2017-06-21 06:13] LABS: ALBUMIN 3.2 gm/dl (3.1-4.5); BUN 25 mg/dl (7-24); CHLORIDE 106 mmol/L (98-107); CHOLESTEROL 126 mg/dL (<200); CREATININE 1.15 mg/dL (0.70-1.30); PHOSPHOROUS 4.6 mg/dL (2.5-4.9); POTASSIUM 4.1 mmol/L (3.5-5.1); SGOT/AST 9 IU/L (3-35); SGPT/ALT 22 U/L (12-78); SODIUM 142 mmol/L (136-145); TRIGLYCERIDES 62 mg/dl (<150); VLDL CHOLESTEROL 12 mg/dL (6-40)
[2017-06-21 06:18] LABS: ALKALINE PHOSPHATASE 64 U/L (45-117); HDL CHOLESTEROL 44 mg/dl (40-60); LDL CHOLESTEROL 70 mg/dL (9-159); THYROID STIM HORMONE (HS) 0.225 uIU/ml (0.358-4.75); TOTAL PROTEIN 6.7 gm/dL (6.4-8.2)
[2017-06-21 06:31] LABS: HEMATOCRIT 44.8 % (42.0-52.0); HEMOGLOBIN 15.1 g/dl (14.0-18.0); MEAN CELL VOLUME 94.7 fl (80.0-94.0); MEAN CORPUSCULAR HGB 31.9 pg (27.0-31.0); MEAN CORPUSCULAR HGB CONC 33.7 g/dl (33.0-37.0); MEAN PLATELET VOLUME 11.3 fl (9.6-12.3); PLATELET COUNT AUTOMATED 182 10*3/uL (130-400); RED BLOOD COUNT 4.73 10*6/uL (4.50-5.90); RED CELL DISTRI WIDTH 14.1 % (0-14.5); WHITE BLOOD COUNT 4.4 10*3/uL (4.8-10.8)
[2017-06-21 06:36] LABS: ACT PARTIAL THROMBO TIME 45.5 SECONDS (20.8-31.5)
[2017-06-21 06:44] LABS: INTERNATIONAL NORM RATIO 6.1 (2.0-3.5)
[2017-06-21 07:51] LABS: PLATELET SUFFICIENCY NORMAL (NORMAL); SCHISTOCYTES FEW; TOTAL CELLS COUNTED 100 #CELLS
[2017-06-21 08:00] VITALS: BP 119/77
[2017-06-21 08:13] LABS: VITAMIN D, 25-HYDROXY 28.9 ng/mL (30-100)
[2017-06-21 12:00] VITALS: BP 106/90
[2017-06-21 16:00] VITALS: BP 99/69
[2017-06-21 20:00] VITALS: BP 112/73
[2017-06-22] VITALS: BP 115/81
[2017-06-22 07:02] LABS: INTERNATIONAL NORM RATIO 7.6 (2.0-3.5)
[2017-06-22 08:00] VITALS: BP 117/80
[2017-06-22 12:00] VITALS: BP 104/61
[2017-06-22] MEDS ORDERED: Percocet 325 MG1 TAB PO (13:59)
[2017-06-22] MEDS ORDERED: VISTARIL25 MG PO (13:59)
[2017-06-22] MEDS ORDERED: CYCLOBENZAPRINE10 MG PO (13:59)
[2017-06-22 17:41] VITALS: BP 125/88
== END 2017-06-22 17:00 | disposition home or self-care (01) | DRG 552 ==
LOC: ED 18:48 → EDHOLD 21:18 → 4E 21:18
PROVIDERS: Internal Medicine; Student in an Organized Health Care Education/Training Program
DX: M54.5 Low back pain (principal); D68.9 Coagulation defect, unspecified; I11.0 Hypertensive heart disease with heart failure; I45.81 Long QT syndrome; I48.2 Chronic atrial fibrillation; I50.32 Chronic diastolic (congestive) heart failure; N28.1 Cyst of kidney, acquired; N39.0 Urinary tract infection, site not specified; R17 Unspecified jaundice; R82.2 Biliuria; R73.9 Hyperglycemia, unspecified; R82.4 Acetonuria; M19.90 Unspecified osteoarthritis, unspecified site; G47.00 Insomnia, unspecified; R63.6 Underweight; F32.9 Major depressive disorder, single episode, unspecified; M54.16 Radiculopathy, lumbar region; Z96.642 Presence of left artificial hip joint; G89.29 Other chronic pain; F17.210 Nicotine dependence, cigarettes, uncomplicated; F41.1 Generalized anxiety disorder; E55.9 Vitamin D deficiency, unspecified; Z71.6 Tobacco abuse counseling; Z79.899 Other long term (current) drug therapy; Z82.49 Family history of ischemic heart disease and other diseases of the circulatory system; Z79.82 Long term (current) use of aspirin; Z79.01 Long term (current) use of anticoagulants; Z87.01 Personal history of pneumonia (recurrent)

== ENCOUNTER 2017-08-02 01:28 | Inpatient (IN) | payer OTHER ==
[2017-08-02] VITALS (8 sets, daily range): BP systolic 117–150; BP diastolic 68–95
[~2017-08-02] VITALS: Ht 182.9 cm; Wt 71.0 kg
[~2017-08-02 01:28] MED LIST changes: +ASPIRIN ADULT L81 M1 PO; +CYCLOBENZAPRINE10 MG PO; +Percocet 325 MG1 TAB PO; +VISTARIL25 MG PO
[2017-08-02 01:42] LABS: BASO # 0.1 10*3/uL (0.0-0.1); BASO % 0.7 % (0.0-1.0); EOS # 0.1 10*3/uL (0.0-0.4); EOS % 0.6 % (1.0-4.0); HEMATOCRIT 47.3 % (42.0-52.0); HEMOGLOBIN 15.6 g/dl (14.0-18.0); LYMPH # 1.9 10*3/uL (1.3-4.4); LYMPH % 21.7 % (27.0-41.0); MEAN CELL VOLUME 96.1 fl (80.0-94.0); MEAN CORPUSCULAR HGB 31.7 pg (27.0-31.0); MEAN PLATELET VOLUME 10.3 fl (9.6-12.3); MONO # 0.6 10*3/uL (0.1-1.0); MONO % 6.9 % (3.0-9.0); NEUT # 6.1 10*3/uL (2.3-7.9); NEUT % 69.9 % (47.0-73.0); PLATELET COUNT AUTOMATED 204 10*3/uL (130-400); RED BLOOD COUNT 4.92 10*6/uL (4.50-5.90); RED CELL DISTRI WIDTH 13.7 % (0-14.5); WHITE BLOOD COUNT 8.7 10*3/uL (4.8-10.8)
[2017-08-02 01:53] LABS: ACT PARTIAL THROMBO TIME 25.1 SECONDS (20.8-31.5); INTERNATIONAL NORM RATIO 1.4 (2.0-3.5)
[2017-08-02 02:02] LABS: ALBUMIN 3.9 gm/dl (3.1-4.5); ALKALINE PHOSPHATASE 80 U/L (45-117); BUN 19 mg/dl (7-24); CHLORIDE 105 mmol/L (98-107); CREATININE 1.26 mg/dL (0.70-1.30); POTASSIUM 3.4 mmol/L (3.5-5.1); SGOT/AST 14 IU/L (3-35); SGPT/ALT 16 U/L (12-78); SODIUM 143 mmol/L (136-145); TOTAL PROTEIN 7.4 gm/dL (6.4-8.2)
[2017-08-02 02:09] LABS: TROPONIN I < 0.015 ng/ml (<0.045)
[2017-08-02 05:50] LABS: ALBUMIN 3.4 gm/dl (3.1-4.5); ALKALINE PHOSPHATASE 73 U/L (45-117); BUN 21 mg/dl (7-24); CHLORIDE 107 mmol/L (98-107); FREE T4 1.04 ng/dl (0.76-1.46); PHOSPHOROUS 2.9 mg/dL (2.5-4.9); POTASSIUM 3.7 mmol/L (3.5-5.1); SGOT/AST 9 IU/L (3-35); SGPT/ALT 13 U/L (12-78); SODIUM 144 mmol/L (136-145); TOTAL PROTEIN 6.6 gm/dL (6.4-8.2)
[2017-08-02 05:53] LABS: BASO # 0.1 10*3/uL (0.0-0.1); BASO % 0.7 % (0.0-1.0); EOS # 0.1 10*3/uL (0.0-0.4); EOS % 1.1 % (1.0-4.0); HEMATOCRIT 43.7 % (42.0-52.0); HEMOGLOBIN 14.4 g/dl (14.0-18.0); LYMPH # 1.9 10*3/uL (1.3-4.4); LYMPH % 25.7 % (27.0-41.0); MEAN CORPUSCULAR HGB 31.6 pg (27.0-31.0); MEAN PLATELET VOLUME 10.6 fl (9.6-12.3); MONO # 0.5 10*3/uL (0.1-1.0); MONO % 7.4 % (3.0-9.0); NEUT # 4.7 10*3/uL (2.3-7.9); NEUT % 64.8 % (47.0-73.0); PLATELET COUNT AUTOMATED 184 10*3/uL (130-400); RED BLOOD COUNT 4.55 10*6/uL (4.50-5.90); RED CELL DISTRI WIDTH 13.7 % (0-14.5); WHITE BLOOD COUNT 7.3 10*3/uL (4.8-10.8)
[2017-08-02 05:57] LABS: THYROID STIM HORMONE (HS) 0.654 uIU/ml (0.358-4.75)
[2017-08-02] MEDS ORDERED: ZANAFLEX CAPSULE4 MG PO (10:42)
[2017-08-02] MEDS ORDERED: COUMADIN1 M1 PO (10:43)
[2017-08-02] MEDS ORDERED: COUMADIN2 M1 PO (10:43)
[2017-08-02] MEDS ORDERED: OMEPRAZOLE D/R20 MG PO (10:44)
[2017-08-03 00:25] VITALS: BP 115/85
[2017-08-03 06:29] LABS: BUN 24 mg/dl (7-24); CHLORIDE 109 mmol/L (98-107); CREATININE 1.02 mg/dL (0.70-1.30); SODIUM 145 mmol/L (136-145)
[2017-08-03 06:31] LABS: BASO # 0.1 10*3/uL (0.0-0.1); BASO % 0.9 % (0.0-1.0); EOS # 0.1 10*3/uL (0.0-0.4); EOS % 2.1 % (1.0-4.0); HEMATOCRIT 43.4 % (42.0-52.0); HEMOGLOBIN 14.1 g/dl (14.0-18.0); LYMPH % 34.9 % (27.0-41.0); MEAN CELL VOLUME 96.4 fl (80.0-94.0); MEAN CORPUSCULAR HGB 31.3 pg (27.0-31.0); MEAN CORPUSCULAR HGB CONC 32.5 g/dl (33.0-37.0); MEAN PLATELET VOLUME 10.5 fl (9.6-12.3); MONO # 0.4 10*3/uL (0.1-1.0); MONO % 6.9 % (3.0-9.0); NEUT # 3.1 10*3/uL (2.3-7.9); NEUT % 54.8 % (47.0-73.0); PLATELET COUNT AUTOMATED 176 10*3/uL (130-400); RED CELL DISTRI WIDTH 13.4 % (0-14.5); WHITE BLOOD COUNT 5.7 10*3/uL (4.8-10.8)
[2017-08-03 08:00] VITALS: BP 150/95
[2017-08-03 12:00] VITALS: BP 144/92
[2017-08-03 16:00] VITALS: BP 107/76
[2017-08-03 20:00] VITALS: BP 129/85
[2017-08-04] VITALS: BP 114/78
[2017-08-04 08:00] VITALS: BP 140/91
== END 2017-08-04 15:23 | disposition other institution (70) | DRG 392 ==
LOC: ED 01:28 → 4E 02:34 → EDHOLD 02:34 → 4E 02:44
PROVIDERS: Emergency Medicine; Internal Medicine; Internal Medicine Hospice and Palliative Medicine
DX: K21.9 Gastro-esophageal reflux disease without esophagitis (principal); D68.59 Other primary thrombophilia; I11.0 Hypertensive heart disease with heart failure; R65.10 Systemic inflammatory response syndrome (SIRS) of non-infectious origin without acute organ dysfunction; I48.2 Chronic atrial fibrillation; I50.9 Heart failure, unspecified; I45.81 Long QT syndrome; E83.41 Hypermagnesemia; Z82.49 Family history of ischemic heart disease and other diseases of the circulatory system; R07.9 Chest pain, unspecified; F32.9 Major depressive disorder, single episode, unspecified; M19.90 Unspecified osteoarthritis, unspecified site; Z96.642 Presence of left artificial hip joint; G89.29 Other chronic pain; M54.5 Low back pain; F41.1 Generalized anxiety disorder; F17.210 Nicotine dependence, cigarettes, uncomplicated; Z79.82 Long term (current) use of aspirin; D75.89 Other specified diseases of blood and blood-forming organs; E87.6 Hypokalemia; M54.16 Radiculopathy, lumbar region; R73.9 Hyperglycemia, unspecified; R00.0 Tachycardia, unspecified; D72.810 Lymphocytopenia; Z85.828 Personal history of other malignant neoplasm of skin; Z71.6 Tobacco abuse counseling

== ENCOUNTER 2019-06-25 07:43 | Emergency (ER) | payer OTHER ==
[~2019-06-25] VITALS: Wt 94.8 kg
[~2019-06-25 07:43] MED LIST changes: +COUMADIN1 M1 PO; +COUMADIN2 M1 PO; +CYMBALTA60 MG PO; +DULCOLAX10 M1 R; +FLEET ENEMA 13133 ML R; +MILK OF MA400 MG/5 M PO; +OMEPRAZOLE D/R20 MG PO; +ZANAFLEX CAPSULE4 MG PO
[2019-06-25 08:10] LABS: BASO # 0.1 10*3/uL (0.0-0.1); BASO % 0.4 % (0.0-1.0); EOS # 0.1 10*3/uL (0.0-0.4); EOS % 0.7 % (1.0-4.0); HEMATOCRIT 47.1 % (42.0-52.0); HEMOGLOBIN 15.1 g/dl (14.0-18.0); LYMPH # 0.9 10*3/uL (1.3-4.4); LYMPH % 6.9 % (27.0-41.0); MEAN CORPUSCULAR HGB 30.1 pg (27.0-31.0); MEAN CORPUSCULAR HGB CONC 32.1 g/dl (33.0-37.0); MEAN PLATELET VOLUME 10.1 fl (9.6-12.3); MONO # 0.5 10*3/uL (0.1-1.0); MONO % 3.9 % (3.0-9.0); NEUT # 11.8 10*3/uL (2.3-7.9); NEUT % 87.7 % (47.0-73.0); PLATELET COUNT AUTOMATED 196 10*3/uL (130-400); RED BLOOD COUNT 5.01 10*6/uL (4.50-5.90); RED CELL DISTRI WIDTH 15.1 % (0-14.5); WHITE BLOOD COUNT 13.5 10*3/uL (4.8-10.8)
--- NOTE | 2019-06-25 08:14 | NUR ---
PATIENT C/O CHEST PAIN WHICH GOES ACROSS RIBS DOWN TO ABD DESCRIBES CONSTANT PRESSURE RATES PAIN 10/10 MEDICATED WITH FENTYL ORDERED, PATIENT ALSO NAUSEATED, MEDICATED WITH ZOFRN.
[2019-06-25 08:20] LABS: ACT PARTIAL THROMBO TIME 35.9 SECONDS (20.0-32.1); INTERNATIONAL NORM RATIO 2.3 (2.0-3.5)
[2019-06-25 08:29] LABS: ALBUMIN 3.8 gm/dl (3.1-4.5); ALKALINE PHOSPHATASE 71 U/L (45-117); BUN 25 mg/dl (7-24); CHLORIDE 109 mmol/L (98-107); CREATININE 1.29 mg/dL (0.70-1.30); POTASSIUM 4.1 mmol/L (3.5-5.1); SGOT/AST 17 IU/L (3-35); SGPT/ALT 23 U/L (12-78); SODIUM 139 mmol/L (136-145); TOTAL PROTEIN 7.8 gm/dL (6.4-8.2)
[2019-06-25 08:31] LABS: TROPONIN I < 0.015 ng/ml (<0.045)
--- NOTE | 2019-06-25 08:43 | NUR ---
IN TO RECHECK PAIN LEVEL RATES PAIN 8/10, NAUSEA HAS STOPPED.
[2019-06-25 08:50] LABS: BILIRUBIN NEGATIVE (NEGATIVE); BLOOD 1+ (NEGATIVE); CLARITY CLEAR (CLEAR); COLOR YELLOW (YELLOW); GLUCOSE NEGATIVE (NEGATIVE); KETONE NEGATIVE (NEGATIVE); PH 8.5 (5.0-9.0)
[2019-06-25 08:51] LABS: LEUKO ESTERASE NEGATIVE (NEGATIVE); NITRITE NEGATIVE (NEGATIVE); UROBILINOGEN 0.2 E.U./dl (0.2-1.0)
--- NOTE | 2019-06-25 09:14 | NUR ---
PATIENT REPORTS PAIN IS RETURNING, ADVISED DR. SKINNER.
--- NOTE | 2019-06-25 09:22 | NUR ---
PATIENT GIVEN FENTYAL ORDERED PAIN 10 DESCRIBES CONSTANT DRIM CHEST TO ABD, PATIENT GRABBIMG LEFT FLANK.
--- NOTE | 2019-06-25 09:52 | NUR ---
MAISHA RETURNED FROM CT, REPORTS PAIN CONTINUES, BUR BETTER THAN BEFORE RATES PAIN 09/19
--- NOTE | 2019-06-25 11:30 | NUR ---
PATIENTS PAIN REMAINS ELEVATED RATING 8/10, MEDICATED WITH FENTYNAL ORDERED.
== END 2019-06-25 14:45 | disposition short-term general hospital (02) ==
LOC: ED 07:43
PROVIDERS: Emergency Medicine
DX: A41.9 Sepsis, unspecified organism (principal); K81.0 Acute cholecystitis; I10 Essential (primary) hypertension; M19.90 Unspecified osteoarthritis, unspecified site; G89.29 Other chronic pain; I48.91 Unspecified atrial fibrillation; K21.9 Gastro-esophageal reflux disease without esophagitis; Z79.899 Other long term (current) drug therapy; Z79.82 Long term (current) use of aspirin; Z96.642 Presence of left artificial hip joint; Z98.890 Other specified postprocedural states

== ENCOUNTER 2020-10-15 10:26 | Emergency (ER) | payer MEDICARE, OTHER | END 2020-10-15 10:55 | disposition home or self-care (01) | LOC: ED 10:26 | DX: G89.29 Other chronic pain (principal); F17.200 Nicotine dependence, unspecified, uncomplicated; Z98.890 Other specified postprocedural states; Z79.82 Long term (current) use of aspirin; Z79.899 Other long term (current) drug therapy ==

== ENCOUNTER 2021-02-08 18:48 | Inpatient (IN) | payer MEDICARE, OTHER ==
[~2021-02-08] VITALS: Ht 182.8 cm; Wt 86.0 kg
[2021-02-08 19:51] VITALS: BP 131/114
[2021-02-08 20:25] LABS: BASO # 0.1 10*3/uL (0.0-0.1); BASO % 0.7 % (0.0-1.0); EOS # 0.1 10*3/uL (0.0-0.4); EOS % 0.4 % (1.0-4.0); HEMATOCRIT 47.7 % (42.0-52.0); LYMPH # 2.3 10*3/uL (1.3-4.4); LYMPH % 16.5 % (27.0-41.0); MEAN CELL VOLUME 92.3 fl (80.0-94.0); MEAN CORPUSCULAR HGB CONC 32.5 g/dl (33.0-37.0); MEAN PLATELET VOLUME 9.8 fl (9.6-12.3); MONO # 0.9 10*3/uL (0.1-1.0); MONO % 6.7 % (3.0-9.0); NEUT # 10.5 10*3/uL (2.3-7.9); NEUT % 75.3 % (47.0-73.0); PLATELET COUNT AUTOMATED 278 10*3/uL (130-400); RED BLOOD COUNT 5.17 10*6/uL (4.50-5.90); RED CELL DISTRI WIDTH 17.4 % (0-14.5)
[2021-02-08 20:41] LABS: ALBUMIN 3.6 gm/dl (3.1-4.5); ALKALINE PHOSPHATASE 135 U/L (45-117); BUN 30 mg/dl (7-24); CHLORIDE 107 mmol/L (98-107); CREATININE 1.77 mg/dL (0.70-1.30); POTASSIUM 3.7 mmol/L (3.5-5.1); SGOT/AST 17 IU/L (3-35); SGPT/ALT 28 U/L (12-78); SODIUM 141 mmol/L (136-145)
[2021-02-08 20:47] LABS: BILIRUBIN 2+ (Negative); BLOOD 2+ (Negative); CLARITY Turbid (Clear); COLOR Dark Yellow (Yellow); GLUCOSE Negative (Negative); KETONE Trace (Negative); LEUKO ESTERASE Trace (Negative); NITRITE Negative (Negative); SPECIFIC GRAVITY >= 1.030 (1.001-1.030)
[2021-02-08 20:49] LABS: THYROID STIM HORMONE (HS) 0.419 uIU/ml (0.358-4.75)
[2021-02-08 20:53] LABS: URINE AMPHETAMINES < 1000 (1000ng/ml); URINE BARBITURATES < 200 (200ng/ml); URINE BENZODIAZEPINES < 200 (200ng/ml); URINE CANNABINOIDS (THC) < 50 (50ng/ml); URINE COCAINE < 300 (300ng/ml); URINE METHADONE < 300 (300ng/ml); URINE OPIATES < 300 (300ng/ml)
[2021-02-08 20:57] LABS: ETHYL ALCOHOL < 3.0 mg/dl (<3)
[2021-02-08 20:57] LABS: URINE PHENCYCLIDINE < 25 (25ng/ml)
[2021-02-08 21:04] LABS: BACTERIA 1+; EPITHELIAL CELLS 0-2; RBC 41-50 rbc/hpf (0-2)
[2021-02-09 04:46] VITALS: BP 152/86
[2021-02-09 10:12] LABS: INTERNATIONAL NORM RATIO 1.2 (2.0-3.5)
[2021-02-09] MEDS ORDERED: ZESTRIL10 MG PO (13:33)
[2021-02-09] MEDS ORDERED: XARE20MG PO (13:35)
[2021-02-09] MEDS ORDERED: OXYCODONE HCL5 M1 PO (13:37)
[2021-02-09 18:10] VITALS: BP 132/81
[2021-02-09 20:00] VITALS: BP 132/79
[2021-02-09] MEDS ORDERED: HYDR25T PO (20:05)
[2021-02-09] MEDS ORDERED: Percocet 325 MG1 TAB PO (20:07)
[2021-02-09] MEDS ORDERED: CALCIUM CARBON600 M4 PO (20:09)
[2021-02-09] MEDS ORDERED: DILTIAZEM 24HR300 MG PO (20:12)
[2021-02-09] MEDS ORDERED: DULOXETINE HCL60 MG PO (20:14)
[2021-02-09] MEDS ORDERED: OMEPRAZOLE MAGN20 MG PO (20:31)
[2021-02-10] VITALS: BP 123/78
[2021-02-10 06:47] LABS: BUN 29 mg/dl (7-24); CHLORIDE 112 mmol/L (98-107); SODIUM 143 mmol/L (136-145)
[2021-02-10 06:48] LABS: CREATININE 1.15 mg/dL (0.70-1.30)
[2021-02-10 07:01] LABS: BASO # 0.1 10*3/uL (0.0-0.1); BASO % 0.9 % (0.0-1.0); EOS # 0.2 10*3/uL (0.0-0.4); EOS % 2.9 % (1.0-4.0); HEMATOCRIT 38.6 % (42.0-52.0); LYMPH # 2.2 10*3/uL (1.3-4.4); LYMPH % 34.1 % (27.0-41.0); MEAN CORPUSCULAR HGB 29.4 pg (27.0-31.0); MEAN CORPUSCULAR HGB CONC 31.6 g/dl (33.0-37.0); MEAN PLATELET VOLUME 10.8 fl (9.6-12.3); MONO # 0.6 10*3/uL (0.1-1.0); NEUT # 3.5 10*3/uL (2.3-7.9); NEUT % 52.8 % (47.0-73.0); RED BLOOD COUNT 4.15 10*6/uL (4.50-5.90); WHITE BLOOD COUNT 6.6 10*3/uL (4.8-10.8)
[2021-02-10 07:06] LABS: PLATELET COUNT AUTOMATED 193 10*3/uL (130-400)
[2021-02-10 08:05] VITALS: BP 132/85
[2021-02-10 16:00] VITALS: BP 103/72
[2021-02-10 20:00] VITALS: BP 134/91
[2021-02-11] VITALS: BP 136/86
[2021-02-11 06:43] LABS: INTERNATIONAL NORM RATIO 1.2 (2.0-3.5)
[2021-02-11 06:49] LABS: BUN 20 mg/dl (7-24); CHLORIDE 114 mmol/L (98-107); CREATININE 0.97 mg/dL (0.70-1.30); POTASSIUM 3.6 mmol/L (3.5-5.1); SODIUM 146 mmol/L (136-145)
[2021-02-11 08:00] VITALS: BP 135/90
[2021-02-11] MEDS ORDERED: DULOXETINE HCL30 MG PO (10:20)
[2021-02-11] MEDS ORDERED: NICODERM T (10:20)
[2021-02-11] MEDS ORDERED: Percocet 325 MG1 TAB PO (10:20)
== END 2021-02-11 14:50 | DRG 640 ==
LOC: ED 18:48 → EDHOLD 02-09 01:08 → 4E 02-09 17:59
PROVIDERS: Emergency Medicine; ADMIT Internal Medicine; ATTEND Internal Medicine
DX: E86.0 Dehydration (principal); N17.0 Acute kidney failure with tubular necrosis; I48.21 Permanent atrial fibrillation; F33.2 Major depressive disorder, recurrent severe without psychotic features; E44.0 Moderate protein-calorie malnutrition; Z20.822 Contact with and (suspected) exposure to COVID-19; M47.816 Spondylosis without myelopathy or radiculopathy, lumbar region; F43.20 Adjustment disorder, unspecified; F41.9 Anxiety disorder, unspecified; N20.0 Calculus of kidney; I50.9 Heart failure, unspecified; I11.0 Hypertensive heart disease with heart failure; R62.7 Adult failure to thrive; F51.04 Psychophysiologic insomnia; F51.01 Primary insomnia; Z68.25 Body mass index [BMI] 25.0-25.9, adult

== ENCOUNTER 2021-10-18 08:23 | Inpatient (IN) | payer MEDICARE, OTHER ==
[~2021-10-18] VITALS: Ht 185.4 cm; Wt 90.3 kg
[~2021-10-18 08:23] MED LIST changes: +ATORVASTATIN CA40 M1 PO; +CALCIUM CARBON600 M4 PO; +DILTIAZEM 24HR300 MG PO; +DULOXETINE HCL60 MG PO; +HYDR25T PO; +METOPROLOL SUCC25 M2 PO; +MIRTAZAPINE15 M2 PO; +NICODERM T; +OMEPRAZOLE MAGN20 MG PO; +OXYCODONE HCL5 M1 PO; +XARE20MG PO; +ZESTRIL10 MG PO
[2021-10-18] MEDS ORDERED: KLONOPIN0.5 MG PO (09:06)
[2021-10-18] MEDS ORDERED: CYMBALTA30 MG PO (09:06)
[2021-10-18 10:25] VITALS: BP 136/92
[2021-10-18 14:26] LABS: BILIRUBIN 1+ (Negative); BLOOD Negative (Negative); CLARITY Clear (Clear); COLOR Dark Yellow (Yellow); GLUCOSE Negative (Negative); KETONE Trace (Negative); LEUKO ESTERASE Trace (Negative); NITRITE Negative (Negative); SPECIFIC GRAVITY 1.025 (1.001-1.030)
[2021-10-18 14:39] LABS: BACTERIA 1+; EPITHELIAL CELLS 0-2; HYALINE CAST 0-2; MUCOUS 2+
[2021-10-18 20:00] VITALS: BP 102/72
[2021-10-19 06:34] LABS: CHLORIDE 113 mmol/L (98-107); POTASSIUM 3.9 mmol/L (3.5-5.1); SODIUM 148 mmol/L (136-145)
[2021-10-19 06:36] LABS: BASO # 0.1 10*3/uL (0.0-0.1); BASO % 0.8 % (0.0-1.0); EOS # 0.4 10*3/uL (0.0-0.4); EOS % 5.6 % (1.0-4.0); HEMATOCRIT 39.2 % (42.0-52.0); LYMPH # 2.2 10*3/uL (1.3-4.4); LYMPH % 33.2 % (27.0-41.0); MEAN CELL VOLUME 88.5 fl (80.0-94.0); MEAN CORPUSCULAR HGB 29.3 pg (27.0-31.0); MEAN CORPUSCULAR HGB CONC 33.2 g/dl (33.0-37.0); MEAN PLATELET VOLUME 11.3 fl (9.6-12.3); MONO # 0.6 10*3/uL (0.1-1.0); NEUT # 3.4 10*3/uL (2.3-7.9); NEUT % 51.2 % (47.0-73.0); PLATELET COUNT AUTOMATED 166 10*3/uL (130-400); RED BLOOD COUNT 4.43 10*6/uL (4.50-5.90); RED CELL DISTRI WIDTH 17.6 % (0-14.5); WHITE BLOOD COUNT 6.7 10*3/uL (4.8-10.8)
[2021-10-19 06:57] LABS: ALKALINE PHOSPHATASE 84 U/L (45-117); BUN 23 mg/dl (7-24); CHOLESTEROL 91 mg/dL (<200); CREATININE 1.19 mg/dL (0.70-1.30); LDL CHOLESTEROL 47 mg/dL (9-159); SGOT/AST 11 IU/L (3-35); SGPT/ALT 16 U/L (12-78); THYROID STIM HORMONE (HS) 0.656 uIU/ml (0.358-4.75); TOTAL PROTEIN 5.8 gm/dL (6.4-8.2); TRIGLYCERIDES 82 mg/dl (<150)
[2021-10-19 07:40] VITALS: BP 148/89
[2021-10-19 08:07] LABS: VITAMIN D, 25-HYDROXY 32.5 ng/mL (30-100)
[2021-10-19 20:00] VITALS: BP 138/74
[2021-10-20 07:16] VITALS: BP 148/90
[2021-10-20 20:00] VITALS: BP 158/88
[2021-10-21 05:07] VITALS: BP 126/88
[2021-10-21 20:00] VITALS: BP 138/84
[2021-10-22 08:00] VITALS: BP 142/100
[2021-10-22 20:00] VITALS: BP 160/99
[2021-10-23 07:51] VITALS: BP 139/84
[2021-10-23 20:00] VITALS: BP 145/95
[2021-10-24 07:00] VITALS: BP 135/91
[2021-10-24 20:21] VITALS: BP 158/100
[2021-10-25 08:00] VITALS: BP 149/105
[2021-10-25] MEDS ORDERED: LISINOPRIL10 M1 PO (09:54)
[2021-10-25] MEDS ORDERED: TOPROL XL50 M1 PO (09:55)
[2021-10-25] MEDS ORDERED: Duragesic 25 M25 MCG TD (09:59)
[2021-10-25 12:03] VITALS: BP 146/82
[2021-10-25] MEDS ORDERED: MINIPRESS1 M1 PO (12:12)
[2021-10-25] MEDS ORDERED: NEURONTIN300 MG PO (12:12)
[2021-10-25] MEDS ORDERED: MIRTAZAPINE15 M2 PO (12:12)
[2021-10-25] MEDS ORDERED: CLONAZEPAM0.5 M2 PO (12:25)
== END 2021-10-25 15:36 | DRG 885 ==
LOC: 3N 08:23
PROVIDERS: ADMIT Psychiatry & Neurology Psychiatry; ATTEND Psychiatry & Neurology Psychiatry
DX: F33.2 Major depressive disorder, recurrent severe without psychotic features (principal); I11.0 Hypertensive heart disease with heart failure; R45.851 Suicidal ideations; I48.21 Permanent atrial fibrillation; I50.32 Chronic diastolic (congestive) heart failure; F41.1 Generalized anxiety disorder; Z20.822 Contact with and (suspected) exposure to COVID-19; R62.7 Adult failure to thrive; G89.29 Other chronic pain; M54.59 Other low back pain; E78.5 Hyperlipidemia, unspecified; G47.00 Insomnia, unspecified; Z96.642 Presence of left artificial hip joint; Z79.01 Long term (current) use of anticoagulants; Z90.89 Acquired absence of other organs; Z82.49 Family history of ischemic heart disease and other diseases of the circulatory system; Z79.899 Other long term (current) drug therapy

== ENCOUNTER 2023-07-08 00:52 | Emergency (ER) | payer MEDICARE, OTHER ==
[~2023-07-08] VITALS: Ht 182.8 cm; Wt 95.3 kg
[~2023-07-08 00:52] MED LIST changes: +'CLONIDINE0.1 MG PO; +AMLODIPINE BESYL5 MG PO; +CIPRO500 MG PO; +CLONAZEPAM0.5 M2 PO; +CYMBALTA30 MG PO; +Duragesic 25 M25 MCG TD; +FLUCONAZOLE100 MG PO; +KLONOPIN0.5 MG PO; +LISINOPRIL10 M1 PO; +METOPROLOL SUCC50 M1 PO; +MINIPRESS1 M1 PO; +MINIPRESS1 MG PO; +NEURONTIN300 MG PO; +PREDNISONE5 MG PO; +TOPROL XL50 M1 PO; +Ventolin 02.5 MG/3 M INH
[2023-07-08] MEDS ORDERED: Bacitracin Zinc 14 GM TUBE T ONE (02:30)
[2023-07-08] MEDS ORDERED: Ondansetron Hydrochloride 4 MG TAB SL ONE (02:30)
[2023-07-08] MEDS ORDERED: Acetaminophen/Hydrocodone 5 MG/325 MG TABLET PO ONE (02:30)
== END 2023-07-08 03:19 | disposition home or self-care (01) ==
LOC: ED 00:52
DX: S01.01XA Laceration without foreign body of scalp, initial encounter (principal); M54.2 Cervicalgia; I10 Essential (primary) hypertension; M19.90 Unspecified osteoarthritis, unspecified site; K21.9 Gastro-esophageal reflux disease without esophagitis; I48.91 Unspecified atrial fibrillation; F41.9 Anxiety disorder, unspecified; Z98.890 Other specified postprocedural states; Z90.89 Acquired absence of other organs; F17.200 Nicotine dependence, unspecified, uncomplicated; W01.198A Fall on same level from slipping, tripping and stumbling with subsequent striking against other object, initial encounter; Y93.E1 Activity, personal bathing and showering; Y92.129 Unspecified place in nursing home as the place of occurrence of the external cause; Y99.8 Other external cause status

== ENCOUNTER → 2023-10-02 | Outpatient (CLI) | payer MEDICARE, OTHER | END | disposition home or self-care (01) | LOC: CT 09-15 00:43 | PROVIDERS: ATTEND Internal Medicine | DX: Z12.2 Encounter for screening for malignant neoplasm of respiratory organs (principal); I51.7 Cardiomegaly; I25.10 Atherosclerotic heart disease of native coronary artery without angina pectoris; J43.9 Emphysema, unspecified; R91.1 Solitary pulmonary nodule ==

== ENCOUNTER → 2023-10-03 | Outpatient (CLI) | payer MEDICARE, OTHER | END | disposition home or self-care (01) | LOC: CARD 09-28 14:00 | PROVIDERS: ATTEND Internal Medicine Cardiovascular Disease | DX: I08.3 Combined rheumatic disorders of mitral, aortic and tricuspid valves (principal) ==

== ENCOUNTER → 2024-01-01 | Outpatient (CLI) | payer OTHER ==
[2024-01-01 14:27] LABS: BASO # 0.1 10*3/uL (0.0-0.1); BASO % 0.8 % (0.0-1.0); EOS # 0.2 10*3/uL (0.0-0.4); EOS % 2.5 % (1.0-4.0); HEMATOCRIT 33.5 % (42.0-52.0); LYMPH # 1.5 10*3/uL (1.3-4.4); LYMPH % 25.4 % (27.0-41.0); MEAN CELL VOLUME 77.4 fl (80.0-94.0); MEAN CORPUSCULAR HGB 23.8 pg (27.0-31.0); MEAN CORPUSCULAR HGB CONC 30.7 g/dl (33.0-37.0); MEAN PLATELET VOLUME 9.7 fl (9.6-12.3); MONO # 0.5 10*3/uL (0.1-1.0); MONO % 8.6 % (3.0-9.0); NEUT # 3.8 10*3/uL (2.3-7.9); NEUT % 62.5 % (47.0-73.0); PLATELET COUNT AUTOMATED 144 10*3/uL (130-400); RED BLOOD COUNT 4.33 10*6/uL (4.50-5.90); RED CELL DISTRI WIDTH 20.5 % (0-14.5)
[2024-01-01 15:02] LABS: FREE T4 1.07 ng/dl (0.89-1.76); POTASSIUM 4.3 mmol/L (3.4-5.1); TOTAL PROTEIN 7.1 gm/dL (6.0-8.0)
[2024-01-01 15:26] LABS: VITAMIN D, 25-HYDROXY 47.3 ng/mL (30-100)
== END | disposition home or self-care (01) ==
LOC: LAB 14:06
PROVIDERS: ATTEND Internal Medicine
DX: I10 Essential (primary) hypertension (principal); K21.00 Gastro-esophageal reflux disease with esophagitis, without bleeding; R53.83 Other fatigue; E55.9 Vitamin D deficiency, unspecified; E53.9 Vitamin B deficiency, unspecified

== ENCOUNTER → 2024-11-07 | Outpatient (CLI) | payer MEDICARE, OTHER ==
[2024-11-07 17:47] LABS: BASO # 0.1 10*3/uL (0.0-0.1); BASO % 0.7 % (0.0-1.0); EOS # 0.2 10*3/uL (0.0-0.4); EOS % 2.4 % (1.0-4.0); MEAN CELL VOLUME 93.7 fl (80.0-94.0); MEAN CORPUSCULAR HGB 29.7 pg (27.0-31.0); MEAN PLATELET VOLUME 9.9 fl (9.6-12.3); MONO # 0.8 10*3/uL (0.1-1.0); MONO % 9.5 % (3.0-9.0); NEUT # 5.7 10*3/uL (2.3-7.9); NEUT % 63.7 % (47.0-73.0); NUCLEATED RED BLOOD CELL 0.0 % (0.0-0.0); NUCLEATED RED BLOOD CELL 0.0 10*3/uL (0.0-0.0); PLATELET COUNT AUTOMATED 166 10*3/uL (130-400); RED CELL DISTRI WIDTH 18.3 % (0-14.5)
[2024-11-07 18:11] LABS: BUN 25.0 mg/dl (9-23); FREE T4 1.34 ng/dl (0.89-1.76); LDL CHOLESTEROL 38.0 mg/dL (9-159); SGPT/ALT 21.0 U/L (5-49)
[2024-11-07 18:12] LABS: VITAMIN D, 25-HYDROXY 38.3 ng/mL (30-100)
== END ==
LOC: LAB 17:26
PROVIDERS: ATTEND Internal Medicine
DX: I10 Essential (primary) hypertension (principal); E78.2 Mixed hyperlipidemia; R53.83 Other fatigue; E53.9 Vitamin B deficiency, unspecified; R97.20 Elevated prostate specific antigen [PSA]; E55.9 Vitamin D deficiency, unspecified; Z13.0 Encounter for screening for diseases of the blood and blood-forming organs and certain disorders involving the immune mechanism; Z13.1 Encounter for screening for diabetes mellitus; Z13.21 Encounter for screening for nutritional disorder; Z13.220 Encounter for screening for lipoid disorders; Z13.228 Encounter for screening for other metabolic disorders; Z13.29 Encounter for screening for other suspected endocrine disorder; Z13.6 Encounter for screening for cardiovascular disorders; Z13.9 Encounter for screening, unspecified; Z13.89 Encounter for screening for other disorder; Z12.5 Encounter for screening for malignant neoplasm of prostate; F17.210 Nicotine dependence, cigarettes, uncomplicated